=== PATIENT | male | born 1955 | race Hispanic/Latino ===

== ENCOUNTER 2016-04-29 00:37 | Emergency (ER) | payer SELFPAY ==
[2016-04-29 00:37] VITALS: BMI 25.0
[2016-04-29 00:44] VITALS: O2SAT 97
[2016-04-29] MEDS ORDERED: Sodium Chloride 0.9% 1,000 ML ONE (00:46)
[2016-04-29 01:23] LABS: BASO # 0.1 K/uL (0.0-0.2); BASO % 0.8 % (0.0-2.0); EOS # 0.3 K/uL (0.0-0.7); EOS % 2.8 % (0.0-4.0); HEMATOCRIT 43.5 % (35.0-51.0); LYMPH # 1.8 K/uL (1.0-4.3); LYMPH % 19.2 % (20.0-40.0); MEAN CELL VOLUME 87.1 fL (80.0-94.0); MEAN CORPUSCULAR HEMOGLOBIN 28.4 pg (27.0-31.0); MEAN CORPUSCULAR HGB CONC 32.6 g/dL (33.0-37.0); MEAN PLATELET VOLUME 9.6 fL (7.2-11.7); MONO # 0.8 K/uL (0.0-0.8); MONO % 8.4 % (0.0-10.0); RED CELL DISTRIBUTION WIDTH 14.8 % (11.5-14.5); WHITE BLOOD COUNT 9.3 K/uL (4.8-10.8)
--- NOTE | 2016-04-29 01:23 | C.PDOC ---
Time Seen by Provider: 04/29/16 00:57 Chief Complaint (Nursing): Abdominal Pain Past Medical History Vital Signs: Last Vital Signs Temp 97.2 F L 04/29/16 00:41 Pulse 78 04/29/16 00:41 Resp 24 04/29/16 00:41 BP 191/102 H 04/29/16 00:41 Pulse Ox 97 04/29/16 00:41 - Medical History PMH: Asthma, COPD, Gall Bladder Disease Surgical History: Appendectomy Family History: States: Unknown Family Hx - Social History Hx Tobacco Use: No (Quit) Hx Alcohol Use: No Hx Substance Use: Yes (COCAINE) - Immunization History Hx Tetanus Toxoid Vaccination: No Hx Influenza Vaccination: No Hx Pneumococcal Vaccination: No ED Course And Treatment O2 Sat by Pulse Oximetry: 97
[2016-04-29 01:26] LABS: RBC URINE 1 /hpf (0-3); URINE BILIRUBIN NEGATIVE (NEGATIVE); URINE BLOOD NEGATIVE (NEGATIVE); URINE COLOR Yellow (YELLOW); URINE GLUCOSE (UA) NORMAL (Normal); URINE KETONE NEGATIVE (NEGATIVE); URINE LEUKOCYTE ESTERASE NEG Leu/uL (Negative); URINE PROTEIN 1+ mg/dL (NEGATIVE); URINE UROBILINOGEN NORMAL mg/dL (0.2-1.0); WBC URINE < 1 /hpf (0-5)
--- NOTE | 2016-04-29 01:30 | C.PDOC ---
History Of Present Illness 60 year old pt c/o right upper quadrant pain for 5 hours prior to arrival. Pt has a history with gallstones and reports that pain is similar from before. Pt denies nausea, vomiting, fever, diarrhea, or any other associated symptoms Time Seen by Provider: 04/29/16 00:57 Chief Complaint (Nursing): Abdominal Pain History Per: Patient History/Exam Limitations: no limitations Onset/Duration Of Symptoms: Hrs Current Symptoms Are (Timing): Still Present Severity: Mild Location Of Pain/Discomfort: RUQ (History of gallstone pain) Associated Symptoms: Other (Similar to prior gallstone pain.). denies: Fever, Nausea, Vomiting, Diarrhea Recent travel outside of the [place]: No Past Medical History Reviewed: Historical Data, Nursing Documentation, Vital Signs Vital Signs: Last Vital Signs Temp 97.2 F L 04/29/16 00:41 Pulse 86 04/29/16 02:42 Resp 18 04/29/16 02:42 BP 145/86 04/29/16 02:42 Pulse Ox 97 04/29/16 03:11 - Medical History PMH: Asthma, COPD, Gall Bladder Disease Surgical History: Appendectomy Family History: States: Unknown Family Hx - Social History Hx Tobacco Use: No (Quit) Hx Alcohol Use: No Hx Substance Use: Yes (COCAINE) - Immunization History Hx Tetanus Toxoid Vaccination: No Hx Influenza Vaccination: No Hx Pneumococcal Vaccination: No Review Of Systems Constitutional: Negative for: Fever Gastrointestinal: Positive for: Nausea, Vomiting, Other (Right upper quadrant pain.). Negative for: Diarrhea, Constipation Genitourinary: Negative for: Hematuria Physical Exam - Physical Exam Appears: Well, Non-toxic Skin: Warm, Dry Eye(s): bilateral: Normal Inspection, PERRL Cardiovascular: Rhythm Regular Respiratory: Normal Breath Sounds, No Rhonchi, No Wheezing Gastrointestinal/Abdominal: Soft, Tenderness (Right upper quadrant), Distention (mild ), No Guarding, No Rebound, No Hernia Back: No CVA Tenderness Neurological/Psych: Oriented x3 Gait: Steady ED Course And Treatment - Laboratory Results Result Diagrams: 04/29/16 01:10 04/29/16 01:10 O2 Sat by Pulse Oximetry: 97 Pulse Ox Interpretation: Normal - CT Scan/US CT ABD/PEL w/ IV contrast Other Rad Studies (CT/US): Interpreted By Me, Read By Radiologist CT/US Interpretation: EXAM: CT Abdomen and Pelvis With Intravenous Contrast. CLINICAL HISTORY: 60 years old, male; Pain; Abdominal pain; Prior surgery; Surgery type: Appendectomy; Patient HX: 9-. 18-16; Additional info: Diffuse abd pain > ruq, distented abdomen. TECHNIQUE: Axial computed tomography images of the abdomen and pelvis with intravenous contrast. This CT. exam was performed using one or more of the following dose reduction techniques: automated. exposure control, adjustment of the mA and/or kV according to patient size, and/or use of iterative. reconstruction technique. Coronal and sagittal reformatted images were created and reviewed. COMPARISON: No relevant prior studies available. FINDINGS: Lower thorax: There is minimal bibasilar atelectasis. ABDOMEN: Liver: There are no focal liver lesions present. Gallbladder and bile ducts: A calcified gallstone is present. No ductal dilation. Pancreas: The pancreas demonstrates only a few punctate calcifications. This is nonspecific but. could represent a mild chronic calcific pancreatitis. Please correlate clinically. No ductal dilation. Spleen : The spleen is normal. Adrenals: The adrenal glands are normal. Kidneys and ureters: The kidneys are normal. No hydronephrosis. Stomach and bowel: The stomach is normal. Colonic constipation is present. There is no evidence. of intestinal obstruction. No mucosal thickening. Appendix: There has been an appendectomy. PELVIS: Bladder: Bladder is decompressed. Reproductive: There appears to be a left hydrocele versus cystic lesion of the left scrotum. Please. correlate clinically and if indicated this could be further evaluated with scrotal sonogram. The. prostate gland and seminal vesicles are normal. ABDOMEN and PELVIS: Intraperitoneal space: There is no evidence of free intraperitoneal fluid. There is no free. intraperitoneal air. Bones/joints: There are moderate degenerative changes present. There is mild diffuse osteopenia. No acute fracture. No dislocation. Soft tissues: Unremarkable. Vasculature: The aorta demonstrates moderate atherosclerotic calcification. No abdominal aortic. aneurysm. Lymph nodes: There is no evidence of lymphadenopathy. IMPRESSION: 1. there appears to be a left hydrocele versus cystic lesion of the left scrotum. Please correlate. clinically and if indicated this could be further evaluated with scrotal sonogram. 2. Additional incidental and/or chronic findings as described. Progress Note: Pt appears anxious and has elevated blood pressure. CT scan was done. Pt was given Toradol and Zofran IV. Reevaluation: Pain improved. abdomen now soft and nontender. Abdominal and CT scan show gallstones, and no acute Cholecystitis. Pt is comfortable with improved pain. Pt understands the importance of following up with general surgery. Pt advised to follow up with Dr. Hoffman to reschedule surgery. CT also shows constipation. Lactulose PO was given to pt. Return precautions d/w pt who expressed understanding. Reassessment Condition: Improved Disposition Counseled Patient/Family Regarding: Studies Performed, Diagnosis, Need For Followup, Rx Given - Disposition Referrals: Berta Mariee MD [Staff Provider] - Vu Hoffman MD [Staff Provider] - Disposition: HOME/ ROUTINE Disposition Time: 03:24 Condition: STABLE Additional Instructions: Please follow up with dr Hoffman to reschedule surgery Take motrin for pain Take miralax for constipation High fiber diet Return to ER if worse Prescriptions: Polyethylene Glycol 3350 [Miralax] 17 gm PO DAILY #1 bottle Naproxen [Naprosyn] 1 tab PO BID PRN #25 tab PRN Reason: Pain Instructions: Biliary Colic (ED), Constipation (ED) - Clinical Impression Clinical Impression: Biliary colic, Constipation - Scribe Statement The provider has reviewed the documentation as recorded by the Scribe Richard yin All medical record entries made by the Nellyibles were at my direction and personally dictated by me. I have reviewed the chart and agree that the record accurately reflects my personal performance of the history, physical exam, medical decision making, and the department course for this patient. I have also personally directed, reviewed, and agree with the discharge instructions and disposition.
[2016-04-29 01:53] LABS: CHLORIDE 96 mmol/L (98-107)
[2016-04-29 01:54] LABS: POTASSIUM 4.8 mmol/L (3.6-5.2); SODIUM 142 mmol/L (132-148)
[2016-04-29 01:56] LABS: ALB/GLOB RATIO 1.3 (1.0-2.1); AST/SGOT 364 U/L (17-59); BILIRUBIN,TOTAL 0.6 mg/dL (0.2-1.3); BLOOD UREA NITROGEN 19 mg/dL (9-20); CARBON DIOXIDE 32 mmol/L (22-30); GFR AFRICAN-AMERICAN > 60; TOTAL PROTEIN 7.6 g/dL (6.3-8.3)
[2016-04-29 01:57] LABS: ALKALINE PHOSPHATASE 88 U/L (38-126); ALT/SGPT 346 U/L (21-72); CALCIUM 9.1 mg/dl (8.6-10.4); GLUCOSE,RANDOM 104 mg/dL (75-110)
[2016-04-29] MEDS ORDERED: Iodixanol 320 MG/ML 100 ML BOTTLE IV ONE (02:08)
[2016-04-29 02:42] VITALS: RESP 18
[2016-04-29 05:07] VITALS: BP 135/85; PULSE 85; TEMP 98.5
--- NOTE | 2016-04-29 09:52 | CT ---
PROCEDURE: CT Abdomen and Pelvis with intravenous contrast HISTORY: Diffuse abdominal pain. Abdominal distention. COMPARISON: None. TECHNIQUE: Axial computed tomographic images of the abdomen and pelvis were performed with intravenous contrast. Subsequently, sagittal and coronal reformatted images were obtained. Radiation dose: Total exam DLP = five hundred seventy-two mGy-cm. FINDINGS: LOWER THORAX: Mild bibasilar atelectasis. Punctate 2 millimeter nodule in the left upper lobe inferiorly on series 3, image 16. LIVER: 1.5 centimeter enhancing lesion in the right hepatic lobe best seen on series 3, image 51. This is of uncertain clinical etiology and may represent a hemangioma ; although, additional etiologies can't be excluded. Correlation with multiphasic hepatic protocol CT or MR may be helpful if clinically indicated. GALLBLADDER AND BILE DUCTS: Partially calcified gallstone present. PANCREAS: Few punctate pancreatic calcifications. This is nonspecific but may represent a mild chronic calcific pancreatitis. Clinical correlation. SPLEEN: Unremarkable. ADRENALS: Unremarkable. No mass. KIDNEYS AND URETERS: Unremarkable. No hydronephrosis. No solid mass. VASCULATURE: Atherosclerotic aortic calcification. BOWEL: Colonic constipation. APPENDIX: Not well identified. PERITONEUM: Unremarkable. No free fluid. No free air. LYMPH NODES: Unremarkable. No enlarged lymph nodes. BLADDER: Urinary bladder is decompressed. REPRODUCTIVE: Left-sided hydrocele versus cystic lesion of the left scrotum. Clinical correlation and or correlation with scrotal ultrasound is recommended. BONES: Degenerative changes in the spine. Mild diffuse osteopenia. OTHER FINDINGS: Asymmetric apparent soft tissue thickening of the right hemidiaphragm best seen on series 3, images 28-40 which appears more prominent than in comparison to the prior study dated 11/01/2015. This is of uncertain clinical etiology. IMPRESSION: Left-sided hydrocele versus cystic lesion of the left scrotum. Clinical correlation. Correlation with scrotal ultrasound may be helpful if clinically indicated. Prominent partially calcified gallstone measuring 2.7 centimeters. 1.5 centimeter enhancing lesion in the right hepatic lobe best seen on series 3, image 51. This is of uncertain clinical etiology and may represent a hemangioma ; although, additional etiologies can't be excluded. Correlation with multiphasic hepatic protocol CT or MR may be helpful if clinically indicated. Few punctate pancreatic calcifications. This is nonspecific but may represent a mild chronic calcific pancreatitis. Clinical correlation. Asymmetric apparent soft tissue thickening of the right hemidiaphragm best seen on series 3, images 28-40 which appears more prominent than in comparison to the prior study dated 11/01/2015. This is of uncertain clinical etiology. Punctate 2 millimeter nodule in the left upper lobe inferiorly on series 3, image 16. Additional findings as above. These findings were preliminarily reported at 2:51 a.m. on 04/29/[address] Mario Chamberlain from [facility].
== END 2016-04-29 05:07 | disposition home or self-care (01) ==
LOC: C.ER 00:37
DX: K80.20 Calculus of gallbladder without cholecystitis without obstruction (principal); K59.00 Constipation, unspecified
CPT/HCPCS: 74177; 80053; 81001; 83690; 85025; 96374; 96375; 99285; J1885; J2405; Q9967

== ENCOUNTER 2016-05-22 20:26 | Emergency (ER) | payer MEDICAID ==
[2016-05-22 20:26] VITALS: BMI 25.0
[2016-05-22] MEDS ORDERED: Albuterol-Ipratrop 3 mg / 0.5 (3 ml) UD ONE ×3 (20:30→22:27)
[2016-05-22] MEDS ORDERED: Albuterol-Ipratrop 3 mg / 0.5 (3 ml) UD INH STA ×2 (20:41→22:31)
--- NOTE | 2016-05-22 21:27 | C.PDOC ---
History Of Present Illness 60 year old male pt, with a history of Asthma and COPD, presents to the ED c/o asthma symptoms (SOB) for the last day and productive coughs with yellow sputum for 2 days. Pt notes being steroid dependent (Prednisone) and reports running out of his medications for 3 days. Pt denies fever, chills, chest pain, nausea, vomiting, or any other complaints. Chief Complaint (Nursing): Shortness Of Breath History Per: Patient History/Exam Limitations: no limitations Onset/Duration Of Symptoms: Days Current Symptoms Are (Timing): Still Present Current Respiratory Medications: Prednisone Severity: Mild Associated Symptoms: Productive Cough (2 days). denies: Fever, Chills, Chest Pain Recent travel outside of the [place]: No Past Medical History Reviewed: Historical Data, Nursing Documentation, Vital Signs Vital Signs: Last Vital Signs Temp 97.7 F 05/22/16 20:33 Pulse 94 H 05/22/16 20:33 Resp 18 05/22/16 22:39 BP 124/79 05/22/16 22:39 Pulse Ox 95 05/22/16 22:39 - Medical History PMH: Asthma, COPD, Gall Bladder Disease Surgical History: Appendectomy Family History: States: Unknown Family Hx - Social History Hx Tobacco Use: No (Quit) Hx Alcohol Use: No Hx Substance Use: Yes (COCAINE (denies on triage)) - Immunization History Hx Tetanus Toxoid Vaccination: No Hx Influenza Vaccination: No Hx Pneumococcal Vaccination: No Review Of Systems Except As Marked, All Systems Reviewed And Found Negative. Constitutional: Negative for: Fever, Chills Cardiovascular: Negative for: Chest Pain Respiratory: Positive for: Cough, Shortness of Breath Gastrointestinal: Negative for: Nausea, Vomiting, Diarrhea Physical Exam - Physical Exam Appears: Non-toxic, No Acute Distress Skin: Warm, Dry Head: Atraumatic, Normacephalic Eye(s): bilateral: Normal Inspection Chest: Symmetrical Cardiovascular: Rhythm Regular, No Murmur Respiratory: No Rales, No Rhonchi (Good air entry), Wheezing (Minimal expiratory whezing), Other Gastrointestinal/Abdominal: Soft, No Tenderness Extremity: Normal ROM, No Tenderness Neurological/Psych: Oriented x3, Normal Speech, Normal Cognition ED Course And Treatment O2 Sat by Pulse Oximetry: 91 (Nebulizer treatment) Pulse Ox Interpretation: Normal Medical Decision Making Medical Decision Making: Plans: -CXR -Albuterol -IV fluids -SOLU-Medrol -Nebulizer treatment -Reassess and disposition 10:40pm Patient feeling better. CXR shows no acute pathology. Pt. to be discharged with Rx and follow up instructions. Disposition - Disposition Referrals: Paty Ryan, [Non-Staff] - Disposition: HOME/ ROUTINE Disposition Time: 22:40 Condition: IMPROVED Additional Instructions: Thank you for letting us take care of you today. Your provider was Dr. Sanchez. You were treated for asthma exacerbation. The emergency medical care you received today was directed at your acute symptoms. If you were prescribed any medication, please fill it and take as directed. It may take several days for your symptoms to resolve. Return to the Emergency Department if your symptoms worsen, do not improve, or if you have any other problems. Please contact your doctor or call one of the physicians/clinics you have been referred to that are listed on the Patient Visit Information form that is included in your discharge packet. Bring any paperwork you were given at discharge with you along with any medications you are taking to your follow up visit. Our treatment cannot replace ongoing medical care by a primary care provider (PCP) outside of the emergency department. Thank you for allowing the [facility] team to be part of your care today. Follow up with your doctor in 1-2 days. STOP SMOKING! Prescriptions: Albuterol/Ipratropium [Duoneb 3 MG/3 Ml-0.5 MG/3 Ml 3 Ml] 3 ml IH Q6 PRN #1 unit PRN Reason: ASTHMA Promethazine/Codeine [Codeine/Promethazine 10 MG/5 Ml-6.25 MG/5 Ml] 5 ml PO Q6 PRN #1 bottle PRN Reason: Cough Montelukast [Singulair] 10 mg PO DAILY #30 tab predniSONE [Prednisone] 40 mg PO DAILY #10 tab Instructions: Asthma (ED), How to Stop Smoking (ED) - Clinical Impression Clinical Impression: Asthma - Scribe Statement The provider has reviewed the documentation as recorded by the Scribe Richard yin All medical record entries made by the Scribe were at my direction and personally dictated by me. I have reviewed the chart and agree that the record accurately reflects my personal performance of the history, physical exam, medical decision making, and the department course for this patient. I have also personally directed, reviewed, and agree with the discharge instructions and disposition.
[2016-05-22 21:50] VITALS: RESP 18
[2016-05-22] MEDS ORDERED: Acetaminophen-Codeine 300/30 mg Tab PO STA (22:12)
[2016-05-22] MEDS ORDERED: Acetaminophen-Codeine 300/30 mg Tab PO ONE (22:15)
[2016-05-22 22:39] VITALS: BP 124/79
[2016-05-22 23:10] VITALS: PULSE 82; TEMP 98.4; O2SAT 98
--- NOTE | 2016-05-23 08:46 | RAD ---
HISTORY: r/o infiltrate COMPARISON: 04/13/2016 FINDINGS: LUNGS: No active pulmonary disease. PLEURA: No significant pleural effusion identified, no pneumothorax apparent. CARDIOVASCULAR: Normal. OSSEOUS STRUCTURES: No significant abnormalities. VISUALIZED UPPER ABDOMEN: Normal. OTHER FINDINGS: None. IMPRESSION: No active disease.
== END 2016-05-22 23:11 | disposition home or self-care (01) ==
LOC: C.ER 20:26
DX: J45.901 Unspecified asthma with (acute) exacerbation (principal); Z87.891 Personal history of nicotine dependence
CPT/HCPCS: 71010; 96365; 96375; 99284; J2930; J3475

== ENCOUNTER 2017-01-07 22:50 | Emergency (ER) | payer OTHER ==
[2017-01-07 22:50] VITALS: BMI 25.0
[2017-01-07 23:03] VITALS: RESP 20; TEMP 98; O2SAT 94
[2017-01-07] MEDS ORDERED: MethylPREDNISolone 40 mg Vial IVP STA (23:09)
[2017-01-07] MEDS ORDERED: Albuterol-Ipratrop 3 mg / 0.5 (3 ml) UD INH STA (23:09)
--- NOTE | 2017-01-07 23:13 | C.PDOC ---
History Of Present Illness 61 year old male with a Hx of COPD presents to the ER with a complaint of SOB and chest pain that began earlier today. Patient states he coughed and "heard a pop" at his left chest area. Patient has a Hx of broken ribs, he was seen here several weeks ago after a trauma. Denies trauma or fever today. 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 Time Seen by Provider: 01/07/17 23:01 Chief Complaint (Nursing): Chest Pain History Per: Patient History/Exam Limitations: no limitations Onset/Duration Of Symptoms: Hrs Current Symptoms Are (Timing): Still Present Associated Symptoms: Dyspnea. denies: Nausea, Diaphoresis, Syncope Modifying Factors: None Exacerbating Factors: None Alleviating Factors: None Recent travel outside of the [place]: No Past Medical History Reviewed: Historical Data, Nursing Documentation, Vital Signs Vital Signs: Last Vital Signs Temp 98 F 01/07/17 23:00 Pulse 78 01/08/17 01:52 Resp 20 01/08/17 01:52 BP 132/80 01/08/17 01:52 Pulse Ox 94 L 01/08/17 02:12 - Medical History PMH: Asthma, COPD, Gall Bladder Disease Surgical History: Appendectomy (AGE 20) Family History: States: Unknown Family Hx - Social History Hx Tobacco Use: No (Quit) Hx Alcohol Use: No Hx Substance Use: Yes (COCAINE (denies on triage)) - Immunization History Hx Tetanus Toxoid Vaccination: No Hx Influenza Vaccination: No Hx Pneumococcal Vaccination: No Review Of Systems Constitutional: Negative for: Fever, Chills Cardiovascular: Positive for: Chest Pain Respiratory: Positive for: Shortness of Breath Gastrointestinal: Negative for: Nausea, Vomiting Physical Exam - Physical Exam Appears: Non-toxic, No Acute Distress Skin: Normal Color, Warm, Dry Head: Atraumatic, Normacephalic Eye(s): bilateral: Normal Inspection Oral Mucosa: Moist Chest: Symmetrical, No Tenderness Cardiovascular: Rhythm Regular Respiratory: No Rales, No Rhonchi, Wheezing (Bilaterally) Gastrointestinal/Abdominal: Soft, No Tenderness Neurological/Psych: Oriented x3, Normal Speech, Other (No focal deficits) ED Course And Treatment - Laboratory Results Result Diagrams: 01/07/17 23:12 01/07/17 23:12 ECG: Interpreted By Me, Viewed By Me ECG Rhythm: Sinus Rhythm ECG Interpretation: Normal Interpretation Of ECG: PVCs, no ST/T wave changes. Rate From EC O2 Sat by Pulse Oximetry: 94 (Room air) Pulse Ox Interpretation: Normal Progress Note: EKG, blood work, CXR, and urinalysis ordered. Nebulizer treatment , morphine, and prednisone administered. Medical Decision Making Medical Decision Makin: On reevaluation, patient reports he is feeling better, he is sitting on the stretcher reading a book in no acute distress. Patient was offered admission but declined. Disposition - Disposition Disposition: HOME/ ROUTINE Disposition Time: 01:40 Condition: STABLE Prescriptions: Albuterol HFA [Ventolin HFA 90 mcg/actuation (8 g)] 1 puff IH Q6 PRN #1 inhaler PRN Reason: Wheezing Prednisone 50 mg PO DAILY #5 tablet Promethazine HCl/Codeine [Prometh-Codein 6.25-10 mg/5 ml] 5 ml PO Q6 PRN #20 syrup PRN Reason: Cough Instructions: Chest Pain (ED), Rib Fracture (ED), COPD (Chronic Obstructive Pulmonary Disease) (ED) Forms: Shoutlet (Vietnamese) - Clinical Impression Clinical Impression: Chest pain, Rib fracture, COPD (chronic obstructive pulmonary disease) - Scribe Statement The provider has reviewed the documentation as recorded by the Scribe Lenard Stevenson All medical record entries made by the Scribe were at my direction and personally dictated by me. I have reviewed the chart and agree that the record accurately reflects my personal performance of the history, physical exam, medical decision making, and the department course for this patient. I have also personally directed, reviewed, and agree with the discharge instructions and disposition.
[2017-01-07 23:16] LABS: BASO % 0.5 % (0.0-2.0); EOS # 0.1 K/uL (0.0-0.7); EOS % 1.7 % (0.0-4.0); HEMATOCRIT 41.8 % (35.0-51.0); LYMPH # 1.9 K/uL (1.0-4.3); LYMPH % 22.5 % (20.0-40.0); MEAN CELL VOLUME 89.2 fL (80.0-94.0); MEAN CORPUSCULAR HGB CONC 33.6 g/dL (33.0-37.0); MEAN PLATELET VOLUME 9.1 fL (7.2-11.7); MONO # 0.6 K/uL (0.0-0.8); MONO % 7.6 % (0.0-10.0); NRBC % 0.2 % (0.0-2.0); RED CELL DISTRIBUTION WIDTH 14.3 % (11.5-14.5); WHITE BLOOD COUNT 8.4 K/uL (4.8-10.8)
[2017-01-07] MEDS ORDERED: Morphine 4 MG/ML VIAL ONE (23:17)
[2017-01-07 23:27] LABS: ALKALINE PHOSPHATASE 42 U/L (38-126); ALT/SGPT 34 U/L (21-72); AST/SGOT 20 U/L (17-59); BILIRUBIN,TOTAL 0.8 mg/dL (0.2-1.3); BLOOD UREA NITROGEN 24 mg/dL (9-20); CALCIUM 8.3 mg/dl (8.6-10.4); CARBON DIOXIDE 24 mmol/L (22-30); CHLORIDE 100 mmol/L (98-107); GFR AFRICAN-AMERICAN > 60; GLUCOSE,RANDOM 96 mg/dL (75-110); POTASSIUM 3.6 mmol/L (3.6-5.2); SODIUM 134 mmol/L (132-148)
[2017-01-07 23:31] LABS: INR 0.9
[2017-01-07] MEDS ORDERED: Albuterol-Ipratrop 3 mg / 0.5 (3 ml) UD ONE (23:43)
[2017-01-08 00:04] LABS: RBC URINE < 1 /hpf (0-3); URINE BILIRUBIN NEGATIVE (NEGATIVE); URINE BLOOD NEGATIVE (NEGATIVE); URINE COLOR Yellow (YELLOW); URINE GLUCOSE (UA) NORMAL (Normal); URINE KETONE NEGATIVE (NEGATIVE); URINE LEUKOCYTE ESTERASE NEG Leu/uL (Negative); URINE PROTEIN NEGATIVE (NEGATIVE); WBC URINE < 1 /hpf (0-5)
[2017-01-08 01:53] VITALS: BP 132/80; PULSE 78
--- NOTE | 2017-01-08 16:54 | RAD ---
PROCEDURE: CHEST RADIOGRAPH, 1 VIEW HISTORY: chest pain COMPARISON: Comparison chest dated 05/22/2016 FINDINGS: LUNGS: Clear. PLEURA: No pneumothorax or pleural fluid seen. CARDIOVASCULAR: Normal. OSSEOUS STRUCTURES: Degenerative changes both acromioclavicular joints. VISUALIZED UPPER ABDOMEN: Normal. OTHER FINDINGS: None. IMPRESSION: No active disease.
--- NOTE | 2017-01-08 17:53 | CT ---
PROCEDURE: CT chest dated 01/08/2017 HISTORY: Left-sided chest pain. History of rib fracture. COMPARISON: Correlation made with CT scan abdomen pelvis which image the lung bases dated 12/21/2016. Comparison also made with chest radiograph dated 01/07/2017. TECHNIQUE: Contiguous axial images were obtained through the chest without intravenous contrast enhancement. Sagittal and coronal reconstructions were performed. Radiation dose (DLP): mGy-cm. This CT exam was performed using one or more of the following dose reduction techniques: Automated exposure control, adjustment of the mA and/or kV according to patient size, and/or use of iterative reconstruction technique. FINDINGS: LUNGS: . No consolidation. Centrilobular and paraseptal emphysema with upper lobe predominance. No focal consolidation. . There is a small approximately 5.9 mm nodule seen in the left anteromedial upper lung field bordering the antrum medial mediastinal surface. . Scarring/ atelectasis right posterior lower lung field as well as the left lung base and lingular region. Minor scarring middle lobe. MEDIASTINUM: Unremarkable thoracic aorta. No aneurysm. Normal sized heart. Main pulmonary artery unremarkable. No vascular congestion. No lymphadenopathy. PLEURA: No pleural fluid. No pneumothorax. BONES: Healing of left 10th lateral rib fracture. Mild multilevel degenerative spondylosis of the thoracic spine UPPER ABDOMEN: . Apparent intraluminal gallbladder calculus. Incidental note made of atypical appearing hyperdense debris within the gastric lumen. Clinical correlation with history recommended. Followup endoscopy could be performed for further evaluation if indicated. Re- demonstrated is a elliptical shaped low-attenuation lesion lateral aspect right lobe liver which exhibit contrast enhanced on the prior study. This may represent a hemangioma however followup nonemergent triple phase CT scan of the hepatic parenchyma could be performed to confirm and exclude other pathology. . OTHER FINDINGS: None. IMPRESSION: Centrilobular emphysematous changes upper lobe predominance. 5.9 mm nodule left anteromedial upper lobe. Recommend follow-up to the chest CT scan in 6 months. Scarring/atelectasis both lung bases right greater than left including lesser changes in the lingular and middle lobe regions. Intraluminal gallbladder calculus. Elliptical shaped low-attenuation lesion lateral aspect right lobe liver possibly representing a hemangioma. Followup triple phase CT scan of the liver could be performed to confirm and exclude other pathology.
== END 2017-01-08 01:52 | disposition home or self-care (01) ==
LOC: C.ER 22:50
DX: S22.32XD Fracture of one rib, left side, subsequent encounter for fracture with routine healing (principal); W18.30XD Fall on same level, unspecified, subsequent encounter; R07.9 Chest pain, unspecified; J44.9 Chronic obstructive pulmonary disease, unspecified; F17.210 Nicotine dependence, cigarettes, uncomplicated
CPT/HCPCS: 71010; 71250; 80053; 81001; 84484; 85025; 85610; 85730; 93005; 96374; 96375; 99284; J2270; J2920

== ENCOUNTER 2017-02-06 06:09 | Emergency (ER) | payer OTHER ==
[2017-02-06 06:09] VITALS: BMI 25.0
[2017-02-06 06:30] VITALS: BP 183/90; PULSE 80; RESP 15; TEMP 97.8; O2SAT 100
[2017-02-06] MEDS ORDERED: Sodium Chloride 0.9% 1,000 ML ONE ×2 (06:42→07:45)
[2017-02-06] MEDS ORDERED: Sodium Chloride 0.9% 1,000 ML IV ONE (07:35)
--- NOTE | 2017-02-06 07:38 | C.PDOC ---
History Of Present Illness 60 yo male w/PMHx of COPD, anxiety, BIBA for evaluation of right upper quadrant pain developed since yesterday evening associated with one episode of vomiting. Pt admits has a history with gallstones and reports that pain is similar from before. Pt sts, " I have been seen by and they will not remove my gallbladder because cant clear me for anesthesia because of my COPD". At present time, pt request pain medication. Patient appears anxious. Pt denies fever, chills, CP< SOB, dyspnea, dipahoresis, palpitation, diarrhea, food intolerance, or any other associated symptoms. Time Seen by Provider: 02/06/17 07:21 Chief Complaint (Nursing): Abdominal Pain History Per: Patient Onset/Duration Of Symptoms: Hrs (5) Location Of Pain/Discomfort: RUQ Associated Symptoms: denies: Fever, Nausea, Vomiting, Diarrhea Past Medical History Reviewed: Historical Data, Nursing Documentation, Vital Signs Vital Signs: Last Vital Signs Temp 97.8 F 02/06/17 06:20 Pulse 80 02/06/17 06:20 Resp 15 02/06/17 06:20 BP 183/90 H 02/06/17 06:20 Pulse Ox 100 02/06/17 08:14 - Medical History PMH: Asthma, COPD, Emphysema, Gall Bladder Disease Surgical History: Appendectomy (AGE 20) Family History: States: Unknown Family Hx - Social History Hx Tobacco Use: Yes (Quit) Hx Alcohol Use: Yes Hx Substance Use: Yes (COCAINE (denies on triage)) - Immunization History Hx Tetanus Toxoid Vaccination: No Hx Influenza Vaccination: No Hx Pneumococcal Vaccination: No Review Of Systems Except As Marked, All Systems Reviewed And Found Negative. Constitutional: Negative for: Fever Gastrointestinal: Positive for: Abdominal Pain. Negative for: Nausea, Vomiting Physical Exam - Physical Exam Appears: Well, Non-toxic, Agitated Skin: Normal Color, Warm, Dry, No Rash Head: Normacephalic Eye(s): bilateral: PERRL Nose: No Flaring, No Discharge Oral Mucosa: Moist, No Drooling Throat: No Erythema, No Drooling Neck: Supple Cardiovascular: Rhythm Regular Respiratory: No Decreased Breath Sounds, No Accessory Muscle Use, No Rales, No Rhonchi Gastrointestinal/Abdominal: Soft, Tenderness (RUQ, mild), No Distention, No Guarding Back: No CVA Tenderness Extremity: Normal ROM, No Pedal Edema, No Deformity Neurological/Psych: Oriented x3, Normal Speech ED Course And Treatment - Laboratory Results Result Diagrams: 02/06/17 07:43 02/06/17 07:43 Lab Interpretation: No Changes Compared To Prior Results O2 Sat by Pulse Oximetry: 100 Pulse Ox Interpretation: Normal Progress Note: After order placed ,pt received Toradol for pain, request discharges, want to leave AMA. Pt sts, " Toradol never helps me. Want to sign out and go to [facility]". Risk from leavivf AMA discussed with pt, Risk discussed with patient including sudden , pt excepts and wish to leave AMA. Against Medical Advice - AMA Patient Left Against Medical Advice: The patient declines admission to the hospital and wishes to leave the Emergency Department. This action is against my medical advice. This decision was made with informed refusal. The patient was told that admission to the hospital is necessary. Explanation of the reasons why were discussed. The risks of leaving were explained to the patient and include, but are not limited to, worsening of known or currently unknown conditions, permanent disability and from undiagnosed or untreated conditions. The patient has the capacity to make this informed decision and understands my explanation of the current medical problem and risks of leaving. The patient voluntarily accepts these risks and signed an AMA form documenting our conversation. The patient was given the opportunity to ask questions and reconsider. The patient was encouraged to return to the Emergency Department at any time for further care. Disposition - Disposition Referrals: Geraldo Palacio [Primary Care Provider] - Disposition: AGAINST MEDICAL ADVICE Disposition Time: 08:13 Condition: STABLE Forms: [facility] (Mongolian) - Clinical Impression Clinical Impression: Abdominal pain, Hx of gallstones - Scribe Statement The provider has reviewed the documentation as recorded by the Scribe (Russ Mg) All medical record entries made by the Scribe were at my direction and personally dictated by me. I have reviewed the chart and agree that the record accurately reflects my personal performance of the history, physical exam, medical decision making, and the department course for this patient. I have also personally directed, reviewed, and agree with the discharge instructions and disposition.
[2017-02-06 07:53] LABS: BASO % 0.5 % (0.0-2.0); EOS % 0.3 % (0.0-4.0); HEMATOCRIT 37.8 % (35.0-51.0); LYMPH # 0.8 K/uL (1.0-4.3); LYMPH % 8.3 % (20.0-40.0); MEAN CELL VOLUME 88.7 fL (80.0-94.0); MEAN CORPUSCULAR HEMOGLOBIN 30.3 pg (27.0-31.0); MEAN CORPUSCULAR HGB CONC 34.2 g/dL (33.0-37.0); MEAN PLATELET VOLUME 9.7 fL (7.2-11.7); MONO # 0.4 K/uL (0.0-0.8); MONO % 4.7 % (0.0-10.0); PLATELET COUNT 208 K/uL (130-400); RED CELL DISTRIBUTION WIDTH 14.5 % (11.5-14.5); WHITE BLOOD COUNT 9.5 K/uL (4.8-10.8)
[2017-02-06 08:07] LABS: ALB/GLOB RATIO 1.2 (1.0-2.1); ALKALINE PHOSPHATASE 43 U/L (38-126); ALT/SGPT 22 U/L (21-72); AMYLASE 76 U/L (30-110); AST/SGOT 17 U/L (17-59); BILIRUBIN,TOTAL 0.4 mg/dL (0.2-1.3); BLOOD UREA NITROGEN 19 mg/dL (9-20); CALCIUM 8.3 mg/dl (8.6-10.4); CARBON DIOXIDE 21 mmol/L (22-30); CHLORIDE 104 mmol/L (98-107); GFR AFRICAN-AMERICAN > 60; GLUCOSE,RANDOM 119 mg/dL (75-110); SODIUM 134 mmol/L (132-148); TOTAL PROTEIN 7.1 g/dL (6.3-8.3)
[2017-02-06 08:11] LABS: RBC URINE 5 /hpf (0-3); URINE BILIRUBIN NEGATIVE (NEGATIVE); URINE BLOOD NEGATIVE (NEGATIVE); URINE COLOR Straw (YELLOW); URINE GLUCOSE (UA) NORMAL (Normal); URINE KETONE NEGATIVE (NEGATIVE); URINE LEUKOCYTE ESTERASE NEG Leu/uL (Negative); URINE PROTEIN NEGATIVE (NEGATIVE); URINE UROBILINOGEN NORMAL mg/dL (0.2-1.0); WBC URINE 1 /hpf (0-5)
[2017-02-06 08:28] LABS: NEUTROPHIL 84 % (50-75); TOTAL CELLS COUNTED 100
== END 2017-02-06 08:34 | disposition left against medical advice (07) ==
LOC: SUPCPDRO 06:09 → C.ER 06:09
DX: R10.9 Unspecified abdominal pain (principal); K82.9 Disease of gallbladder, unspecified
CPT/HCPCS: 80053; 80324; 80345; 80346; 80349; 80353; 80358; 80361; 81001; 82150; 83690; 83992; 85025; 96361; 96374; 96375; 99285; J1885; J2405; J7040

== ENCOUNTER 2017-06-28 17:18 | Inpatient (IN) | payer OTHER ==
[2017-06-28 17:18] VITALS: BMI 25.0
[2017-06-28] MEDS ORDERED: Sodium Chloride 0.9% 1,000 ML IV STA (18:13)
[2017-06-28] MEDS ORDERED: Sodium Chloride 0.9% 1,000 ML ONE (18:30)
[2017-06-28 18:33] LABS: BASO % 0.3 % (0.0-2.0); EOS % 0.1 % (0.0-4.0); HEMOGLOBIN 13.8 g/dL (12.0-18.0); LYMPH # 1.1 K/uL (1.0-4.3); LYMPH % 10.1 % (20.0-40.0); MEAN CELL VOLUME 87.4 fL (80.0-94.0); MEAN CORPUSCULAR HEMOGLOBIN 29.5 pg (27.0-31.0); MEAN CORPUSCULAR HGB CONC 33.8 g/dL (33.0-37.0); MONO # 0.8 K/uL (0.0-0.8); MONO % 7.1 % (0.0-10.0); NEUT # 8.8 K/uL (1.8-7.0); NEUT % 82.4 % (50.0-75.0); NRBC % 0.1 % (0.0-2.0); RBC 4.68 Mil/uL (4.40-5.90); RED CELL DISTRIBUTION WIDTH 14.5 % (11.5-14.5); WHITE BLOOD COUNT 10.7 K/uL (4.8-10.8)
[2017-06-28 18:45] LABS: ALB/GLOB RATIO 1.4 (1.0-2.1); ALBUMIN 3.9 g/dL (3.5-5.0); ALT/SGPT 427 U/L (21-72); AST/SGOT 562 U/L (17-59); BLOOD UREA NITROGEN 15 mg/dL (9-20); CALCIUM 9.3 mg/dl (8.6-10.4); GFR AFRICAN-AMERICAN > 60; GFR NON-AFRICAN AMERICAN > 60; LIPASE 57 U/L (23-300)
--- NOTE | 2017-06-28 18:47 | RAD ---
PROCEDURE: CHEST RADIOGRAPH, 1 VIEW HISTORY: abd pain COMPARISON: 01/07/2017 FINDINGS: LUNGS: Clear. PLEURA: No pneumothorax or pleural fluid seen. CARDIOVASCULAR: Normal. OSSEOUS STRUCTURES: No significant abnormalities. VISUALIZED UPPER ABDOMEN: Normal. OTHER FINDINGS: None. IMPRESSION: No active disease.
--- NOTE | 2017-06-28 19:08 | C.PDOC ---
History Of Present Illness <AntoninaNancy - Last Filed: 06/28/17 19:24> <LilliRaehumphrey - Last Filed: 06/28/17 20:01> 61-year-old male, PMHx includes gall stones, presents to the emergency department with complaints of right upper quadrant abdominal pain. Patient states he is aware of gallstones and wanted surgery by Dr Hoffman, but was unable due to COPD symptoms. Patient was placed on medication to control his COPD, but developed worsening pain in right upper quadrant, radiating to his back, prompting visit. Denies nausea/vomiting, fever, chills, chest pain, shortness of breath or any other associated symptoms. No other complaints at this time. (Nancy Sarkar) History Per: Patient History/Exam Limitations: no limitations Current Symptoms Are (Timing): Still Present <RashadghazalNancy - Last Filed: 06/28/17 19:24> <LilliRaehumphrey - Last Filed: 06/28/17 20:01> Chief Complaint (Nursing): Abdominal Pain Past Medical History Reviewed: Historical Data, Nursing Documentation, Vital Signs - Medical History PMH: Asthma, COPD, Emphysema, Gall Bladder Disease Surgical History: Appendectomy Family History: States: No Known Family Hx - Social History Hx Tobacco Use: Yes (Quit) Hx Alcohol Use: No Hx Substance Use: No - Immunization History Hx Tetanus Toxoid Vaccination: No Hx Influenza Vaccination: No Hx Pneumococcal Vaccination: No <AntoninaNancy - Last Filed: 06/28/17 19:24> Vital Signs: Last Vital Signs Temp 97.9 F 06/28/17 17:33 Pulse 78 06/28/17 17:33 Resp 19 06/28/17 17:35 BP 137/77 06/28/17 17:33 Pulse Ox 97 06/28/17 19:26 Review Of Systems Constitutional: Negative for: Fever, Chills Cardiovascular: Negative for: Chest Pain Respiratory: Negative for: Shortness of Breath Gastrointestinal: Positive for: Abdominal Pain. Negative for: Vomiting, Diarrhea, Constipation Musculoskeletal: Negative for: Back Pain Neurological: Negative for: Weakness, Numbness, Headache, Dizziness <RashadghazalNancy - Last Filed: 06/28/17 19:24> Physical Exam - Physical Exam Appears: Non-toxic, No Acute Distress Skin: Normal Color, Warm, Dry, No Rash Head: Normacephalic Eye(s): bilateral: PERRL Nose: Normal Oral Mucosa: Moist Lips: Normal Appearing Neck: Normal ROM Cardiovascular: Rhythm Regular, No Murmur Respiratory: Normal Breath Sounds, No Accessory Muscle Use Gastrointestinal/Abdominal: Soft, Tenderness (RUQ, +Covarurbias's sign), No Rebound Extremity: Normal ROM, No Deformity, No Swelling Neurological/Psych: Oriented x3, Normal Speech <Nancy Sarkar - Last Filed: 06/28/17 19:24> ED Course And Treatment - Laboratory Results Result Diagrams: 06/28/17 18:29 06/28/17 18:29 O2 Sat by Pulse Oximetry: 97 (RA) Pulse Ox Interpretation: Normal Progress Note: Bloodwork, Chest X-Ray and US abdomen ordered and reviewed. Patient treated with Protonix, IVF, Toradol and Zofran. <Nancy Sarkar - Last Filed: 06/28/17 19:24> - Laboratory Results Result Diagrams: 06/28/17 18:29 06/28/17 18:29 Pulse Ox Interpretation: Normal <Cash Reeder - Last Filed: 06/28/17 20:01> Disposition - Disposition Disposition Time: 19:25 <Nancy Sarkar - Last Filed: 06/28/17 19:24> Discussed With : Gutierrez Bean Comment: accepted the pt on his service and took over the care at 7:59PM Doctor Will See Patient In The: Hospital Counseled Patient/Family Regarding: Studies Performed, Diagnosis <Cash Reeder - Last Filed: 06/28/17 20:01> - Disposition Disposition: HOSPITALIZED Condition: FAIR Forms: [facility] (Luxembourger) - Clinical Impression Clinical Impression: Abdominal pain, COPD (chronic obstructive pulmonary disease), Biliary colic, Cholelithiasis, Dyspnea - Scribe Statement The provider has reviewed the documentation as recorded by the Scribe (Russ Mg) <Nancy Sarkar - Last Filed: 06/28/17 19:24> <Cash Reeder - Last Filed: 06/28/17 20:01> - Scribe Statement All medical record entries made by the Scribe were at my direction and personally dictated by me. I have reviewed the chart and agree that the record accurately reflects my personal performance of the history, physical exam, medical decision making, and the department course for this patient. I have also personally directed, reviewed, and agree with the discharge instructions and disposition. (Nancy Sarkar) Physician Patient Turnover Patient Signed Over To: Cash Reeder Handoff Comments: pending RUQ US and dispo <Nancy Sarkar - Last Filed: 06/28/17 19:24> Decision To Admit <Nancy Sarkar - Last Filed: 06/28/17 19:24> - Pt Status Changed To: Hospital Disposition Of: Inpatient - Admit Certification Admit to Inpatient:: After my assessment, the patient will require hospitalization for at least two midnights. This is because of the severity of symptoms shown, intensity of services needed, and/or the medical risk in this patient being treated as an outpatient. - InPatient: Physician Admission Certification: I certify that this patient requires 2 or more midnights of care for the following reason:: After my assessment, the patient will require hospitalization for at least two midnights. This is because of the severity of symptoms shown, intensity of services needed, and/or the medical risk in this patient being treated as an outpatient. - . Bed Request Type: Regular Admitting Physician: Gutierrez Bean <Cash Reeder - Last Filed: 06/28/17 20:01> - . Patient Diagnosis: Abdominal pain, COPD (chronic obstructive pulmonary disease), Biliary colic, Cholelithiasis, Dyspnea
[2017-06-28] MEDS ORDERED: Piperacillin/Tazobact 3.375 gm 100 ML IVPB STA (19:13)
[2017-06-28] MEDS ORDERED: Albuterol-Ipratrop 3 mg / 0.5 (3 ml) UD INH STA (19:14)
[2017-06-28] MEDS ORDERED: Piperacillin/Tazobact 3.375 gm 100 ML IVPB ONE (19:33)
[2017-06-28] MEDS ORDERED: Albuterol-Ipratrop 3 mg / 0.5 (3 ml) UD ONE (19:33)
--- NOTE | 2017-06-28 19:46 | US ---
EXAM: US Abdomen Limited, Right Upper Quadrant EXAM DATE/TIME: 06/28/2017 6:14 PM CLINICAL HISTORY: 61 years old, male; Pain; Abdominal pain; Epigastric; Additional info: Ruq abd pain TECHNIQUE: Real-time ultrasound of the right upper quadrant with image documentation. COMPARISON: US - ABDOMEN LIMITED 2015-11-01 08:07 FINDINGS: Liver: There is hepatopedal flow in the main portal vein. Liver appears mildly enlarged. Texture is mildly heterogeneous. Gallbladder: Gallbladder is distended with shadowing stones. There is no sludge or wall thickening. Common bile duct: Common bile duct measures 6 mm in diameter. Pancreas: Pancreas is almost completely obscured by bowel gas. Right kidney: Right kidney is unremarkable. Aorta: Visualized portions of the aorta and inferior vena cava are unremarkable. IMPRESSION: Gallstones with mildly prominent common duct; mildly enlarged fatty liver; limited evaluation pancreas due to body habitus and bowel gas Patient was not tender over the gallbladder
[2017-06-28] MEDS ORDERED: Oxycodone/Acetaminophen 5/325 mg Tab PO PRN (20:01)
[2017-06-28] MEDS ORDERED: Ciprofloxacin 400mg/200ml D5W 400 MG/200 ML BAG IVPB ONE (21:15)
[2017-06-28] MEDS: Ciprofloxacin 400mg/200ml D5W 400 MG/200 ML BAG IVPB SCH (21:19)
[2017-06-28] MEDS ORDERED: Iohexol 240 (50 ml) PO ONE (21:54)
[2017-06-28] MEDS ORDERED: Iohexol 350mg/ml 100 ML ONE (21:57)
[2017-06-28] MEDS ORDERED: Iohexol 240 (50 ml) ONE (21:59)
[2017-06-28] MEDS ORDERED: metroNIDAZOLE IV 500 mg/100 ml 500 MG/100 ML BAG IVPB SCH (22:00)
[2017-06-28 22:28] VITALS: RESP 20
[2017-06-29] MEDS ORDERED: metroNIDAZOLE IV 500 mg/100 ml 500 MG/100 ML BAG IVPB SCH (00:31)
[2017-06-29] MEDS: Albuterol-Ipratrop 3 mg / 0.5 (3 ml) UD INH SCH ×3 (01:00→08:25)
--- NOTE | 2017-06-29 05:40 | CP.PCM.CON ---
History of Present Illness - History of Present Illness History of Present Illness: General Surgery Consult Note for Dr. Burch This 61M with a PMH of COPD, Emphysema, Asthma, presents with a one day history of abdominal pain that has already resolved. He denies any fevers or chills at home. He reports that he has had multiple self limiting episodes in the past that have all resolved. Last year he was seen and schedules to have Surgery with Dr. Hoffman however it was canceled due to a COPD exasterbation. He is currently pain free and reports that he would like to go home, and would like tyo followup and schedule his surgery with Dr. Hoffman on an outpatient basis. PMH: Asthma, COPD, Emphysema PSH: Appendectomy ALL: NKDA Review of Systems - Review of Systems All systems: reviewed and no additional remarkable complaints except - Respiratory Respiratory: Cough - Gastrointestinal Gastrointestinal: absent: Abdominal Pain, Nausea, Vomiting Past Patient History - Infectious Disease Hx of Infectious Diseases: None - Past Medical History & Family History Past Medical History?: Yes - Past Social History Smoking Status: Light Smoker < 10 Cigarettes Daily - CARDIAC Hx Cardiac Disorders: No - PULMONARY Hx Respiratory Disorders: Yes Hx Asthma: Yes Hx Chronic Obstructive Pulmonary Disease (COPD): Yes Hx Emphysema: Yes - NEUROLOGICAL Hx Neurological Disorder: No - HEENT Hx HEENT Problems: No - RENAL Hx Chronic Kidney Disease: No - ENDOCRINE/METABOLIC Hx Endocrine Disorders: No - HEMATOLOGICAL/ONCOLOGICAL Hx Blood Disorders: No - INTEGUMENTARY Hx Dermatological Problems: No - MUSCULOSKELETAL/RHEUMATOLOGICAL Hx Falls: No - GASTROINTESTINAL Hx Gastrointestinal Disorders: Yes Hx Gall Bladder Disease: Yes - GENITOURINARY/GYNECOLOGICAL Hx Genitourinary Disorders: No - PSYCHIATRIC Hx Substance Use: No - SURGICAL HISTORY Hx Surgeries: Yes Hx Appendectomy: Yes - ANESTHESIA Hx Anesthesia: Yes Hx Anesthesia Reactions: No Hx Malignant Hyperthermia: No Meds Allergies/Adverse Reactions: Allergies Allergy/AdvReac Type Severity Reaction Status Date / Time No Known Allergies Allergy Verified 06/28/17 17:38 - Medications Medications: Current Medications Albuterol/Ipratropium (Duoneb 3 Mg/0.5 Mg (3 Ml) Ud) 3 ml INH RQ4 JUNE Last Admin: 06/29/17 05:22 Dose: Not Given Enoxaparin Sodium (Lovenox) 40 mg SC DAILY [facility] Ciprofloxacin (Cipro 400mg/200ml Dsw) 400 mg in 200 mls @ 133 mls/hr IVPB Q12H JUNE PRN Reason: Protocol Last Admin: 06/28/17 21:19 Dose: 133 mls/hr Metronidazole (Flagyl) 500 mg in 100 mls @ 100 mls/hr IVPB Q8 JUNE PRN Reason: Protocol Montelukast Sodium (Singulair) 10 mg PO HS [facility] Last Admin: 06/28/17 22:11 Dose: 10 mg Oxycodone/Acetaminophen (Percocet 5/325 Mg Tab) 1 tab PO Q4H PRN PRN Reason: Pain, moderate (4-7) Stop: 07/01/17 20:02 Pneumococcal Polyvalent Vaccine (Pneumovax 23 Vaccine) 0.5 ml IM .ONCE ONE Stop: 07/01/17 10:01 Prednisone (Prednisone Tab) 10 mg PO DAILY [facility] Tiotropium [place] (Spiriva) 18 mcg INH RQ24 [facility] Physical Exam - Constitutional Appears: Non-toxic, No Acute Distress - Head Exam Head Exam: ATRAUMATIC, NORMOCEPHALIC - Eye Exam Eye Exam: EOMI, Normal appearance - ENT Exam ENT Exam: Mucous Membranes Moist - Respiratory Exam Additional comments: Cough - Cardiovascular Exam Cardiovascular Exam: +S1, +S2 - GI/Abdominal Exam GI & Abdominal Exam: Soft. absent: Distended, Firm, Guarding, Hernia - Neurological Exam Neurological exam: Alert, Oriented x3 - Psychiatric Exam Psychiatric exam: Normal Affect, Normal Mood - Skin Skin Exam: Dry, Intact Results - Vital Signs Recent Vital Signs: Last Vital Signs Temp 98.1 F 06/29/17 00:00 Pulse 76 06/29/17 00:00 Resp 20 06/29/17 00:00 BP 131/76 06/29/17 00:00 Pulse Ox 98 06/29/17 00:42 - Labs Result Diagrams: 06/28/17 18:29 06/28/17 18:29 Labs: Laboratory Results - last 24 hr 06/28/17 06/28/17 06/28/17 18:29 18:29 18:29 WBC 10.7 RBC 4.68 Hgb 13.8 Hct 40.9 MCV 87.4 MCH 29.5 MCHC 33.8 RDW 14.5 Plt Count 219 MPV 9.0 Neut % (Auto) 82.4 H Lymph % (Auto) 10.1 L Cecil % (Auto) 7.1 Eos % (Auto) 0.1 Baso % (Auto) 0.3 Neut # (Auto) 8.8 H Lymph # (Auto) 1.1 Cecil # (Auto) 0.8 Eos # (Auto) 0.0 Baso # (Auto) 0.0 PT 11.0 INR 1.0 APTT 27 Sodium 141 Potassium 4.4 Chloride 103 Carbon Dioxide 27 Anion Gap 16 BUN 15 Creatinine 0.9 Est GFR ( Amer) > 60 Est GFR (Non-Af Amer) > 60 Random Glucose 128 H Calcium 9.3 Total Bilirubin 1.0 AST 562 H D ALT 427 H D Alkaline Phosphatase 92 Total Protein 6.6 Albumin 3.9 Globulin 2.7 Albumin/Globulin Ratio 1.4 Lipase 57 Assessment & Plan - Assessment and Plan (Free Text) Assessment: 61M with Biliary Colic/ symptomatic cholelisthiasis Pt wants to schedule outpatient surgery with Dr. Dalton Avila for D/C from surgical perspective D/W Dr. Marcin Blas PGY2
[2017-06-29] MEDS ORDERED: Tiotropium 18 mcg Cap For Inhalation INH SCH (08:00)
[2017-06-29 08:01] VITALS: BP 127/85; PULSE 80; TEMP 97.6; O2SAT 97
[2017-06-29] MEDS: Ciprofloxacin 400mg/200ml D5W 400 MG/200 ML BAG IVPB SCH (08:32)
--- NOTE | 2017-06-29 09:36 | CP.PCM.PN ---
Subjective - Date & Time of Evaluation Date of Evaluation: 06/29/17 Time of Evaluation: 09:30 - Subjective Subjective: Patient requested to sign out AMA because he needs to go home to take care of his animals. Risks of signing out AMA were extensively discussed with the patient. Patient insisted in signing out AMA, stating that "I feel good, I'll see Dr. Hoffman as outpatient anyway". Attending Dr. Bean was notified. Objective - Vital Signs/Intake and Output Vital Signs (last 24 hours): Temp Pulse Resp BP Pulse Ox 97.6 F 80 20 127/85 97 06/29/17 08:00 06/29/17 08:00 06/29/17 08:00 06/29/17 08:00 06/29/17 08:00 Intake and Output: 06/29/17 06/29/17 06:59 18:59 Intake Total 460 Balance 460 - Medications Medications: Current Medications Albuterol/Ipratropium (Duoneb 3 Mg/0.5 Mg (3 Ml) Ud) 3 ml INH RQ4 JUNE Last Admin: 06/29/17 08:25 Dose: 3 ml Enoxaparin Sodium (Lovenox) 40 mg SC DAILY [facility] Ciprofloxacin (Cipro 400mg/200ml Dsw) 400 mg in 200 mls @ 133 mls/hr IVPB Q12H JUNE PRN Reason: Protocol Last Admin: 06/29/17 08:32 Dose: 133 mls/hr Metronidazole (Flagyl) 500 mg in 100 mls @ 100 mls/hr IVPB Q8 JUNE PRN Reason: Protocol Last Admin: 06/29/17 06:17 Dose: 100 mls/hr Montelukast Sodium (Singulair) [address] [facility] Last Admin: 06/28/17 22:11 Dose: 10 mg Oxycodone/Acetaminophen (Percocet 5/325 Mg Tab) 1 tab PO Q4H PRN PRN Reason: Pain, moderate (4-7) Stop: 07/01/17 20:02 Pneumococcal Polyvalent Vaccine (Pneumovax 23 Vaccine) 0.5 ml IM .ONCE ONE Stop: 07/01/17 10:01 Prednisone (Prednisone Tab) [address] [facility] Tiotropium [place] (Spiriva) 18 mcg INH RQ24 [facility] Last Admin: 06/29/17 08:25 Dose: Not Given - Labs Labs: 06/28/17 18:29 06/28/17 18:29 PT 11.0 SECONDS (9.7-12.2) 06/28/17 18:29 INR 1.0 06/28/17 18:29 APTT 27 SECONDS (21-34) 06/28/17 18:29
[2017-06-29] MEDS ORDERED: Enoxaparin 30 mg Syringe SC SCH (10:00)
--- NOTE | 2017-06-29 10:53 | PN ---
DATE: 06/29/2017 LOCATION: 360, bed A. SUBJECTIVE: This is a 61-year-old male seen and examined in rounds today with staff in the floor, appears to be again restless and anxious. PHYSICAL EXAMINATION: VITAL SIGNS: The patient is afebrile with pulse of 78, respiratory rate 20 to 22, blood pressure of 132/80. HEENT: Showed dry oral mucous membranes. Nonicteric sclerae. LUNGS: Mild crepitation. Decreased air entry at bases. HEART: Positive S1 and S2. ABDOMEN: Soft, bowel sounds are present with mild generalized tenderness. No mass or organomegaly. No rebound tenderness or guarding. Specific right upper quadrant tenderness noted. RECTAL: Patient refused. EXTREMITIES: Without edema, clubbing, or cyanosis. NEUROLOGIC: No reported new neurological deficits, sensory or motor. IMPRESSION: 1. Cholelithiasis with early stage cholecystitis. 2. Known history of peptic ulcer disease. 3. Chronic obstructive pulmonary disease with status post appendectomy by history. 4. Abnormal liver function test secondary to above versus possible viral hepatitis. SUGGESTIONS: 1. Agree with your plan. 2. Hepatitis profile. 3. Monospot. It has to be mentioned that the patient refused any procedure or surgery and asked to be discharged to home today due to personal reasons. Dr. Bean to be informed. Prieto Winslow MD
--- NOTE | 2017-06-29 15:38 | CT ---
PROCEDURE: CT Abdomen and Pelvis with and without intravenous contrast HISTORY: CHOLELITHIASIS, BILLIARY COLIC COMPARISON: 12/21/2016 TECHNIQUE: Axial images of the abdomen were obtained in the pre contrast, hepatic arterial and portal venous phases of enhancement. Coronal and sagittal reformats were generated. Contrast dose: 100 mL Omnipaque [address] exam was performed using one or more of the following dose reduction techniques: Automated exposure control, adjustment of the mA and/or kV according to patient size, and/or use of iterative reconstruction technique. Radiation dose: Total exam DLP = 1991.75 mGy-cm. FINDINGS: LOWER THORAX: Unremarkable. LIVER: Normal size, contour and attenuation. Mild central intrahepatic biliary dilatation, nonspecific. Correlate with laboratory evaluation. No mass. GALLBLADDER AND BILE DUCTS: There is a rounded structure with minimal curvilinear mural calcification, corresponding to the cholelithiasis demonstrated on ultrasound examination of the same date. No mural thickening. No pericholecystic fluid. . Common bile duct measures 7 mm in diameter. PANCREAS: Few scattered calcifications. No mass. No pancreatic ductal dilatation. SPLEEN: Unremarkable. ADRENALS: Unremarkable. No mass. KIDNEYS AND URETERS: Unremarkable. No hydronephrosis. No solid mass. VASCULATURE: Unremarkable. No aortic aneurysm. BOWEL: Unremarkable. No obstruction. No gross mural thickening. APPENDIX: Not identified. No secondary findings. PERITONEUM: Unremarkable. No free fluid. No free air. LYMPH NODES: Unremarkable. No enlarged lymph nodes. BLADDER: Unremarkable. REPRODUCTIVE: Normal prostate BONES: No acute fracture. OTHER FINDINGS: None. IMPRESSION: No pancreatic mass. No evidence of acute pancreatitis. No extrahepatic biliary dilatation. Mild central intrahepatic biliary dilatation, uncertain significance. Correlate with laboratory evaluation. Few scattered pancreatic calcifications common nonspecific. Cholelithiasis. No mural thickening or pericholecystic fluid to suggest acute cholecystitis. Preliminary interpretation of this examination was reported by [employer] at 12:22 a.m. on 06/29/2017. There is concurrence of this report with the preliminary interpretation.
--- NOTE | 2017-06-29 20:40 | CON ---
DATE: 06/28/2017 LOCATION: 360, bed A. This is a 61 years old male seen for GI consultation initially on 06/28/2017 as requested by the admitting MD as well as the admitting medical staff. The entire chart is reviewed including, but not limited to, the most recent lab and radiology study results, current and previous medication list, current and previous medical events, allergy to medication list as well as all the available current and previous medical records. Case discussed with the staff at length. HISTORY OF PRESENT ILLNESS: This is a 61 years old male admitted through the emergency room with a main complaint of severe right upper quadrant abdominal pain, mid epigastric pain with mild episode of shortness of breath,but not chest pain or palpitation. No reported active bleeding, chills or fever. The patient admitted that the pain radiates to his back as well as sometimes the right shoulder. He knows he has a history of cholelithiasis from previous workup. PAST MEDICAL HISTORY: Including but not limited to; 1. Gallbladder stone. 2. COPD. 3. Status post appendectomy. 4. Peptic ulcer disease. FAMILY HISTORY: Unknown. SOCIAL HISTORY: Ex-smoker but no alcohol intake. CURRENT MEDICATIONS: Post admission medication list reviewed. ALLERGIES TO MEDICATIONS: NONE. LABORATORY RESULTS: After being admitted to the hospital, initial blood workup showed normal CBC with normal PT and PTT. Blood glucose level 128, AST 562, ALT 427 with normal total bilirubin. Abdominal ultrasound done indicative of gallbladder stone and mildly dilated common bile duct, but no evidence of choledocholithiasis with mild fatty liver. PHYSICAL EXAMINATION: GENERAL: A 61 years old male, appeared to be awake, alert and oriented. VITAL SIGNS: Afebrile with pulse of 70, respiratory rate 20 to 22, blood pressure 130/72. HEENT: Showed mildly dry oral mucous membranes. Nonicteric sclerae. LUNGS: Few scattered crepitation. Decreased air entry at bases. HEART: Positive S1 and S2. ABDOMEN: Soft, slightly distended with midepigastric as well as right upper quadrant tenderness. No mass or organomegaly. No rebound tenderness or guarding. RECTAL: The patient refused. EXTREMITIES: No significant edema, clubbing or cyanosis. NEUROLOGIC: No reported new neurological deficits, sensory or motor. Peripheral pulses are present bilaterally. It has to be mentioned that the patient appears to be somewhat restless and anxious during my physical examination. IMPRESSION: 1. Cholelithiasis with early stage cholecystitis. 2. Known history of chronic obstructive pulmonary disease. 3. Reexacerbation of peptic ulcer disease. 4. Status post appendectomy by history. 5. Anxiety syndrome. SUGGESTIONS: 1. Agree with your plan. 2. Due to the abnormal liver function test, hepatitis profile to be ordered as well as serum lipase and amylase level, which was reported initially to be normal as lipase was 57. 3. Alpha fetoprotein. 4. Surgical consultation. 5. Further recommendation to follow. Prieto Winslow MD
--- NOTE | 2017-06-30 07:31 | HP ---
HISTORY OF PRESENT ILLNESS: Mr. Logan is admitted to the hospital with chief complaint of abdominal pain, was found to have elevated liver enzymes, COPD. The patient came to the ER advised admission. PAST MEDICAL HISTORY: COPD. PHYSICAL EXAMINATION: GENERAL: The patient is awake, alert, and oriented. VITAL SIGNS: Temperature 98, pulse 90. HEENT: Within normal limits. NECK: Supple. CHEST: Symmetrical. HEART: Regular. ABDOMEN: Soft. EXTREMITIES: No edema. LABORATORY DATA: The patient has elevated liver enzymes. IMPRESSION AND PLAN: abdominal pain. The patient get bed rest, supportive care. Continue with treatment. Gutierrez Bean MD
[2017-07-01] MEDS ORDERED: Pneumococcal 23-Valent Vaccine IM ONE (10:00)
== END 2017-06-29 09:45 | disposition left against medical advice (07) | DRG 207 ==
LOC: C.ER 17:18 → C.9E 19:57 → C.3T 21:57
PROVIDERS: ADMIT Internal Medicine Pulmonary Disease; ATTEND Internal Medicine Pulmonary Disease
DX: K80.10 Calculus of gallbladder with chronic cholecystitis without obstruction (principal); J44.9 Chronic obstructive pulmonary disease, unspecified; F41.9 Anxiety disorder, unspecified; K25.3 Acute gastric ulcer without hemorrhage or perforation; F17.210 Nicotine dependence, cigarettes, uncomplicated

== ENCOUNTER 2018-01-31 20:31 | Inpatient (IN) | payer OTHER ==
[2018-01-31 20:31] VITALS: BMI 28.8
[~2018-01-31 20:31] MED LIST: Albuterol-Ipratrop 3 mg / 0.5 (3 ml) UD INH STA
[2018-01-31] MEDS ORDERED: Albuterol-Ipratrop 3 mg / 0.5 (3 ml) UD ONE ×2 (20:43→20:50)
[2018-01-31] MEDS ORDERED: Albuterol-Ipratrop 3 mg / 0.5 (3 ml) UD INH STA ×2 (20:45→20:58)
[2018-01-31] MEDS ORDERED: MethylPREDNISolone 40 mg Vial IVP STA (21:19)
[2018-01-31] MEDS ORDERED: Albuterol 0.083% Inhal Sol (2.5 mg/3 mL) UD INH STA ×2 (21:20→22:25)
--- NOTE | 2018-01-31 21:23 | C.PDOC ---
History Of Present Illness 62 year old male with PMHx of COPD and asthma presents to the ED complaining of worsening shortness of breath and cough ongoing for 4 days. Reports sweats, but denies any fever, chills, chest pain, or any other associated symptoms. PMD: Dr. Jackson Time Seen by Provider: 01/31/18 20:44 Chief Complaint (Nursing): Cough, Cold, Congestion History Per: Patient History/Exam Limitations: no limitations Onset/Duration Of Symptoms: Days (4) Current Symptoms Are (Timing): Still Present Initiating Event: Upper Respiratory Illness Associated Symptoms: Other (cough). denies: Fever, Chills, Sweating Past Medical History Reviewed: Historical Data, Nursing Documentation, Vital Signs Vital Signs: Last Vital Signs Temp 97.9 F 01/31/18 20:34 Pulse 100 H 01/31/18 20:34 Resp 20 01/31/18 20:34 BP 166/71 H 01/31/18 20:34 Pulse Ox 95 01/31/18 20:34 - Medical History PMH: Asthma, COPD, Emphysema, Gall Bladder Disease Denies: Chronic Kidney Disease Surgical History: Appendectomy Family History: States: No Known Family Hx - Social History Hx Tobacco Use: Yes (Quit) Hx Alcohol Use: No Hx Substance Use: Yes (cocaine) - Immunization History Hx Tetanus Toxoid Vaccination: No Hx Influenza Vaccination: No Hx Pneumococcal Vaccination: No Review Of Systems Except As Marked, All Systems Reviewed And Found Negative. Constitutional: Positive for: Sweats. Negative for: Fever, Chills Cardiovascular: Negative for: Chest Pain Respiratory: Positive for: Cough, Shortness of Breath Physical Exam - Physical Exam Additional Physical Exam Comments: Gen: VS reviewed, alert, well developed, well nourished, nontoxic, mild distress Eye: EOMI, PERRL Neck: no JVD, supple, no adenopathy CV: Tachycardic, regular rhythm, no rubs,no murmur, S1, S2 Pulm: Fair air exchange b/l, expiratory wheezing b/l. able to speak full sentences Abd: soft, nontender, no guarding, no rebound, no rigidity Ext: no edema Skin: good color, no rash, no cyanosis Psych: responds appropriately to questions, normal affect Neuro: oriented x3, CN2-12 intact grossly, motor intact, sensation intact ED Course And Treatment - Laboratory Results Result Diagrams: 01/31/18 21:27 01/31/18 21:27 O2 Sat by Pulse Oximetry: 95 (RA) Pulse Ox Interpretation: Normal - Radiology CXR: Interpreted by Me (cxr: no ptx, no wide mediastinum, questionable focal infiltrate left lower lobe) Medical Decision Making Medical Decision Making: admit accepted by dr. jackson. patient to be admitted for inpt tx copd exacerbation. patient had marginal response to multiple neb and steroids. admit to tele. Disposition - Disposition Disposition: HOSPITALIZED Disposition Time: 22:28 Condition: STABLE Forms: [employer] (Russian) - Clinical Impression Clinical Impression: COPD exacerbation - Scribe Statement The provider has reviewed the documentation as recorded by the Scribles Ramsey All medical record entries made by the Nellyibe were at my direction and personally dictated by me. I have reviewed the chart and agree that the record accurately reflects my personal performance of the history, physical exam, medical decision making, and the department course for this patient. I have also personally directed, reviewed, and agree with the discharge instructions and disposition.
[2018-01-31 21:31] LABS: VENOUS BLOOD GAS BASE EXCESS 0.3 mmol/L (0.0-2.0); VENOUS BLOOD GAS PCO2 42 mmHg (40-60); VENOUS BLOOD GAS PO2 76 mm/Hg (30-55); VENOUS BLOOD PH 7.39 (7.32-7.43)
[2018-01-31 21:32] LABS: BASO # 0.1 K/uL (0.0-0.2); BASO % 0.6 % (0.0-2.0); EOS % 0.1 % (0.0-4.0); HEMOGLOBIN 13.4 g/dL (12.0-18.0); MEAN CELL VOLUME 88.2 fL (80.0-94.0); MEAN CORPUSCULAR HEMOGLOBIN 29.5 pg (27.0-31.0); MEAN CORPUSCULAR HGB CONC 33.5 g/dL (33.0-37.0); MEAN PLATELET VOLUME 9.6 fL (7.2-11.7); MONO # 0.6 K/uL (0.0-0.8); MONO % 6.9 % (0.0-10.0); NEUT # 6.8 K/uL (1.8-7.0); NEUT % 80.4 % (50.0-75.0); RBC 4.55 Mil/uL (4.40-5.90); RED CELL DISTRIBUTION WIDTH 14.6 % (11.5-14.5); WHITE BLOOD COUNT 8.4 K/uL (4.8-10.8)
[2018-01-31] MEDS ORDERED: Albuterol 0.083% Inhal Sol (2.5 mg/3 mL) UD ONE (21:32)
[2018-01-31 21:48] LABS: ALB/GLOB RATIO 1.3 (1.0-2.1); ALBUMIN 3.8 g/dL (3.5-5.0); ALT/SGPT 55 U/L (21-72); AST/SGOT 51 U/L (17-59); BLOOD UREA NITROGEN 12 mg/dL (9-20); CALCIUM 8.4 mg/dl (8.6-10.4); GFR NON-AFRICAN AMERICAN > 60
[2018-01-31 21:56] LABS: B-TYPE NATRIURETIC PEPTIDE 91.6 pg/mL (0-900)
[2018-01-31] MEDS ORDERED: Azithromycin 500 MG in Sodium Chloride 0.9% 250 ML IVPB STA (22:29)
[2018-01-31] MEDS ORDERED: MethylPREDNISolone 40 mg Vial IVP SCH (22:30)
[2018-02-01] MEDS: MethylPREDNISolone 40 mg Vial IVP SCH ×4 (00:28→19:09)
[2018-02-01] MEDS: Albuterol-Ipratrop 3 mg / 0.5 (3 ml) UD INH SCH ×6 (02:19→20:01)
[2018-02-01] MEDS ORDERED: guaiFENesin DM 200 mg-20 mg/10 ml UD PO PRN (06:57)
[2018-02-01] MEDS ORDERED: Acetylcysteine 20% Inhal Soln (4ml) INH SCH (07:00)
[2018-02-01] MEDS: Acetylcysteine 20% Inhal Soln (4ml) INH SCH ×3 (07:20→20:02)
[2018-02-01] MEDS: cefTRIAXone IV 1 gm in Dextros 1 GM in Dextrose 5% In Water 50 ML IVPB SCH (09:15)
[2018-02-01] MEDS: Enoxaparin 40 mg Syringe SC SCH (09:15)
[2018-02-01] MEDS: Azithromycin 500 MG in Sodium Chloride 0.9% 250 ML IVPB SCH (09:16)
--- NOTE | 2018-02-01 09:21 | CP.PCM.PN ---
Subjective - Date & Time of Evaluation Date of Evaluation: 02/01/18 Time of Evaluation: 09:17 - Subjective Subjective: PGY3 Note for Dr. Pizarro Service; Medicine This patient was seen and examined at bedside; This patient came in last night after 4 days of shortnes of breath, cough, and chills at home. He states he was taking augmentin for an abdominal infection and once he stopped those pills 4 days ago, he became increasingly short of breath with the above symptoms. Since being admitted to the hospital he admits to decreased shortness of breath, cough, and chills, He feels better. Denies all other symptoms. Objective - Vital Signs/Intake and Output Vital Signs (last 24 hours): Temp Pulse Resp BP Pulse Ox 97.8 F 70 18 146/87 95 02/01/18 07:30 02/01/18 07:54 02/01/18 07:30 02/01/18 07:30 02/01/18 07:30 Intake and Output: 02/01/18 02/01/18 06:59 18:59 Intake Total 250 Balance 250 - Medications Medications: Current Medications Acetylcysteine (Acetylcysteine 20%) 4 ml INH RQ6 JUNE Albuterol/Ipratropium (Duoneb 3 Mg/0.5 Mg (3 Ml) Ud) 3 ml INH RQ4 JUNE Last Admin: 02/01/18 03:21 Dose: Not Given Enoxaparin Sodium (Lovenox) 40 mg SC DAILY JUNE Fluticasone/Vilanterol (Breo Ellipta 100-25 Mcg Inh) 1 puff INH RQ24 JUNE Guaifenesin/Dextromethorphan (Robitussin Dm) 10 ml PO Q4H PRN PRN Reason: Cough and congestion Ceftriaxone Sodium 1 gm/ (Dextrose) 100 mls @ 50 mls/30 min IVPB DAILY JUNE; Protocol Azithromycin 500 mg/ Sodium (Chloride) 250 mls @ 250 mls/hr IVPB DAILY JUNE; Protocol Methylprednisolone (Solu-Medrol) 40 mg IVP Q6 JUNE Last Admin: 02/01/18 05:57 Dose: 40 mg Montelukast Sodium (Singulair) 10 mg PO DAILY JUNE Tiotropium [place] (Spiriva) 18 mcg IH DAILY JUNE - Labs Labs: 01/31/18 21:27 01/31/18 21:27 - Constitutional Appears: Well, Non-toxic - Head Exam Head Exam: ATRAUMATIC - Eye Exam Eye Exam: EOMI, Normal appearance, PERRL Pupil Exam: PERRL - ENT Exam ENT Exam: Mucous Membranes Moist - Neck Exam Neck Exam: Full ROM - Respiratory Exam Respiratory Exam: Rales, NORMAL BREATHING PATTERN. absent: Rhonchi, Wheezes, Respiratory Distress, Stridor - Cardiovascular Exam Cardiovascular Exam: REGULAR RHYTHM, +S1, +S2 - GI/Abdominal Exam GI & Abdominal Exam: Soft, Normal Bowel Sounds - Rectal Exam Rectal Exam: Deferred - Extremities Exam Extremities Exam: Full ROM - Back Exam Back Exam: absent: CVA tenderness (L), CVA tenderness (R) - Neurological Exam Neurological Exam: Alert, Awake, Oriented x3 - Psychiatric Exam Psychiatric exam: Normal Affect - Skin Skin Exam: Warm Assessment and Plan - Assessment and Plan (Free Text) Assessment: 62yo M admitted for pneumonia with possible COPD exacerbation PNA with possible COPD exacerbation -Ceftriaxone 1g daily and azithromycin 500mg daily -Solumedrol Q6H 60mg IV--can most likely be d/c on 40mg daily prednisone for 7days on discharge -Duonebs Q6H PRN -guaf/codeine for expectorant as needed and cough suppression -acetylcysteine for exportant as well Can most likely be d/c 02/02; c/w 7 day course of levofloxacin, c/w inhalers, increase steroid COPD -c/w DUlera -c/w monteleukast -c/w tiotroprium Dispo -pending PT eval -Protonix with high dose steroids and chronic steroid use -lovenox SC -Pt refusing vaccinations -pt on oil heaterman steroids; 20mg daily (10 the past few weeks), will need [facility]ci taper Case discussed with Dr. Geneva Ruiz PGY3
--- NOTE | 2018-02-01 09:45 | RAD ---
Date of service: 01/31/2018 HISTORY: cough, pneumonia COMPARISON: 06/28/2017 and 05/08/2015 FINDINGS: LUNGS: No active pulmonary disease. No consolidative infiltrate appreciated. PLEURA: No significant pleural effusion identified, no pneumothorax apparent. CARDIOVASCULAR: There is absence of aortic atherosclerotic calcification on x-ray. Normal cardiac size. No pulmonary vascular congestion. OSSEOUS STRUCTURES: Thoracic spondylosis. Bilateral shoulder arthrosis right greater than left VISUALIZED UPPER ABDOMEN: Normal. OTHER FINDINGS: Allowing for slight differences in technique the slight prominence of the anterior left 6th rib is believes similar to the 2016 study. Prominent coaster cartilaginous junctional calcification here and/or remote trauma can simulate this.. No worrisome interval changes are bleed present. IMPRESSION: No acute cardiopulmonary pathology noted. Other findings as above.
[2018-02-01] MEDS ORDERED: Tiotropium 18 mcg Cap For Inhalation IH SCH (10:00)
[2018-02-01] MEDS: Pantoprazole 20 mg EC Tab PO SCH (10:55)
[2018-02-01 16:34] VITALS: RESP 20
[2018-02-02] MEDS: MethylPREDNISolone 40 mg Vial IVP SCH ×2 (00:25→05:07)
--- NOTE | 2018-02-02 06:34 | HP ---
HISTORY OF PRESENT ILLNESS: Mr. Logan is a 62-year-old male, admitted to the hospital with complaint of shortness of breath, wheezes, and cough for a week's time. The patient came to the ER and was advised admission. The patient has a COPD and was smoking only a month ago. The patient needs Dulera. PHYSICAL EXAMINATION: GENERAL: The patient is awake, alert, and oriented. VITAL SIGNS: Temperature 98, pulse 90. HEENT: Within normal limits. NECK: Supple. CHEST: Symmetrical. HEART: Regular. ABDOMEN: Soft. EXTREMITIES: No edema. IMPRESSION AND PLAN: The patient suffers from chronic obstructive pulmonary disease, bronchitis. The patient is on bedrest, supportive care, bronchodilators, O2. Gutierrez Bean MD
[2018-02-02] MEDS ORDERED: Fluticasone-Vilanterol 100/25mcg Diskus INH SCH (08:00)
[2018-02-02] MEDS: Acetylcysteine 20% Inhal Soln (4ml) INH SCH (08:24)
[2018-02-02] MEDS: Albuterol-Ipratrop 3 mg / 0.5 (3 ml) UD INH SCH ×2 (08:24→11:01)
[2018-02-02 08:43] VITALS: BP 150/89; PULSE 97; TEMP 98.2; O2SAT 94
[2018-02-02] MEDS: cefTRIAXone IV 1 gm in Dextros 1 GM in Dextrose 5% In Water 50 ML IVPB SCH (09:12)
[2018-02-02] MEDS: Pantoprazole 20 mg EC Tab PO SCH (09:12)
[2018-02-02] MEDS: Enoxaparin 40 mg Syringe SC SCH (09:12)
--- NOTE | 2018-02-02 09:28 | CP.PCM.PN ---
Subjective - Date & Time of Evaluation Date of Evaluation: 02/02/18 Time of Evaluation: 09:33 - Subjective Subjective: PGY3 Note for Dr. Bean; Medicine This patient was seen and examined at bedside this AM; wishes to go home even though it was adivsed to stay for one more day; patient denies fever/chills, JALLOH, abdominal pain, N/V/D, dysuria/freq/urg or lower extremity pain/swelling. States that SOB is much improved and that he slept through the night without coughing. Objective - Vital Signs/Intake and Output Vital Signs (last 24 hours): Temp Pulse Resp BP Pulse Ox 98.2 F 97 H 20 150/89 94 L 02/02/18 07:45 02/02/18 07:45 02/02/18 07:45 02/02/18 07:45 02/02/18 07:45 - Medications Medications: Current Medications Acetylcysteine (Acetylcysteine 20%) 4 ml INH RQ6 JUNE Last Admin: 02/02/18 08:24 Dose: 4 ml Albuterol/Ipratropium (Duoneb 3 Mg/0.5 Mg (3 Ml) Ud) 3 ml INH RQ4 JUNE Last Admin: 02/02/18 08:24 Dose: 3 ml Enoxaparin Sodium (Lovenox) 40 mg SC DAILY JUNE Last Admin: 02/02/18 09:12 Dose: 40 mg Fluticasone/Vilanterol (Breo Ellipta 100-25 Mcg Inh) 1 puff INH RQ24 JUNE Last Admin: 02/02/18 08:24 Dose: Not Given Guaifenesin/Dextromethorphan (Robitussin Dm) 10 ml PO Q4H PRN PRN Reason: Cough and congestion Ceftriaxone Sodium 1 gm/ (Dextrose) 100 mls @ 50 mls/30 min IVPB DAILY JUNE; Protocol Last Admin: 02/02/18 09:12 Dose: 50 mls/30 min Azithromycin 500 mg/ Sodium (Chloride) 250 mls @ 250 mls/hr IVPB DAILY JUNE; Protocol Last Admin: 02/01/18 09:16 Dose: 250 mls/hr Methylprednisolone (Solu-Medrol) 40 mg IVP Q6 JUNE Last Admin: 02/02/18 05:07 Dose: 40 mg Montelukast Sodium (Singulair) 10 mg PO DAILY [facility] Last Admin: 02/02/18 09:12 Dose: 10 mg Pantoprazole Sodium (Protonix Ec Tab) 20 mg PO DAILY [facility] Last Admin: 02/02/18 09:12 Dose: 20 mg Tiotropium [place] (Spiriva) 18 mcg IH DAILY [facility] - Labs Labs: 01/31/18 21:27 01/31/18 21:27 Assessment and Plan - Assessment and Plan (Free Text) Assessment: Appears: Well, Non-toxic - Head Exam Head Exam: ATRAUMATIC - Eye Exam Eye Exam: EOMI, Normal appearance, PERRL Pupil Exam: PERRL - ENT Exam ENT Exam: Mucous Membranes Moist - Neck Exam Neck Exam: Full ROM - Respiratory Exam Respiratory Exam: Rales, NORMAL BREATHING PATTERN. absent: Rhonchi, Wheezes, Respiratory Distress, Stridor - Cardiovascular Exam Cardiovascular Exam: REGULAR RHYTHM, +S1, +S2 - GI/Abdominal Exam GI & Abdominal Exam: Soft, Normal Bowel Sounds - Rectal Exam Rectal Exam: Deferred - Extremities Exam Extremities Exam: Full ROM - Back Exam Back Exam: absent: CVA tenderness (L), CVA tenderness (R) - Neurological Exam Neurological Exam: Alert, Awake, Oriented x3 - Psychiatric Exam Psychiatric exam: Normal Affect - Skin Skin Exam: Warm Assessment and Plan - Assessment and Plan (Free Text) Assessment: 62yo M admitted for pneumonia with possible COPD exacerbation PNA with possible COPD exacerbation -Ceftriaxone 1g daily and azithromycin 500mg daily -Solumedrol Q6H 60mg IV--can most likely be d/c on 40mg daily prednisone for 7days on discharge -Duonebs Q6H PRN -guaf/codeine for expectorant as needed and cough suppression -acetylcysteine for exportant as well Can most likely be d/c 02/02; c/w 7 day course of levofloxacin, c/w inhalers, increase steroid COPD -c/w DUlera -c/w monteleukast -c/w tiotroprium Dispo -pending PT eval -Protonix with high dose steroids and chronic steroid use -lovenox SC -Pt refusing vaccinations -pt on assisted steroids; 20mg daily (10 the past few weeks), will need bed bug exterminator taper Case discussed with Dr. Bean The patient wishes to leave today will give steroids; 40mg daily for 1week 20mg daily for 1 week 10mg daily for 1 week 5mg daily for 1 week Levofloxacin 750mg PO daily for 5 more days Duonebs PRN as needed; patient already has medicine and nebulizer machine c/w inhalers; Dulera, Monteleukast and Spiriva f/u with Dr. Bean within the week Shubham Ruiz PGY3
[2018-02-02] MEDS: Azithromycin 500 MG in Sodium Chloride 0.9% 250 ML IVPB SCH (11:05)
== END 2018-02-02 12:42 | disposition home or self-care (01) | DRG 89 ==
LOC: C.ER 20:31 → C.6T 22:25
PROVIDERS: ADMIT Internal Medicine Pulmonary Disease; ATTEND Internal Medicine Pulmonary Disease
DX: J18.9 Pneumonia, unspecified organism (principal); J44.0 Chronic obstructive pulmonary disease with (acute) lower respiratory infection; F17.210 Nicotine dependence, cigarettes, uncomplicated; J20.9 Acute bronchitis, unspecified; Z79.52 Long term (current) use of systemic steroids